=== PATIENT | female | born 1995 | race Hispanic/Latino ===

== ENCOUNTER 2020-02-21 12:30 | Inpatient (IN) | payer BC ==
--- OUTSIDE RECORDS SUMMARY | 2020-02-21 12:36 | XMS REPORT ---
:1995 Author Organization [facility] t Address [address] [place] [address] [place] [id number] Care Team Providers Name Role Phone Unavailable Unavailable Unavailable Problems This patient has no known problems. Allergies, Adverse Reactions, Alerts This patient has no known allergies or adverse reactions. Medications This patient has no known medications.
[2020-02-21] MEDS ORDERED: MEPERIDINE HCL 25 MG/0.5 ML IV PRN (13:17)
[2020-02-21] MEDS ORDERED: Ringers Lactate 1,000 ML IV PRN (13:17)
[2020-02-21] MEDS ORDERED: METHYLERGONOVINE 0.2MG/ML AMP IM PRN (13:17)
[2020-02-21] MEDS ORDERED: CARBOPROST TROME 250 MCG/ML IM PRN (13:17)
[2020-02-21 13:43] LABS: Absolute Lymphocytes (CBC) 1.2 K/uL (0.7-4.9); Basophils % 0.2 % (0-1.3); Hematocrit 35.3 % (36.0-45.0); Lymphocytes % 7.2 % (15.3-44.8); MPV 8.5 fL (7.6-11.3); RBC Red Blood Cell Count 4.19 M/uL (3.86-4.86)
[2020-02-21] MEDS ORDERED: LIDOCAINE 1% 20 ML MDV ONE (13:47)
[2020-02-21 13:54] LABS: Urine Appearance CLOUDY; Urine Blood 2+ (NEG); Urine Color DK YELLOW; Urine Glucose NEGATIVE (NEG); Urine Protein TRACE (NEG); Urine pH 7.5 (5.0-7.0)
[2020-02-21] MEDS ORDERED: BUTORPHANOL 1 MG/ML INJ ONE (13:56)
[2020-02-21] MEDS ORDERED: OXYTOCIN/LR 20 UNIT/1,000 ML BAG IV SCH ×2 (14:00→16:00)
[2020-02-21] MEDS ORDERED: Ringers Lactate 1,000 ML IV SCH (14:00)
[2020-02-21 14:10] LABS: Blood Morphology Comment NOT SEEN (NOT SEEN); Platelet Estimate ADEQ; Urine White Blood Cell Casts OK
[2020-02-21 14:16] VITALS: BMI 23.4
[2020-02-21 14:29] LABS: Urine Microscopic Reflex ORDER UMIC
[2020-02-21 14:30] LABS: Urine Bilirubin NEGATIVE (NEG)
[2020-02-21 14:33] LABS: Urine Bacteria 20-50 /HPF (<20); Urine Culture Reflex Order REFLEXED; Urine Mucus SLIGHT /HPF (NONE SEEN); Urine RBC 20-50 /HPF (NONE SEEN)
[2020-02-21] MEDS ORDERED: Oxycodone HCl/Acetaminophen 1 TAB TAB PO PRN (15:05)
[2020-02-21] MEDS ORDERED: ACETAMINOPHEN 500 MG TAB PO PRN (15:05)
[2020-02-21] MEDS ORDERED: BISACODYL 10 MG RECTAL SUPP PR PRN (15:05)
[2020-02-21] MEDS ORDERED: DIPHENHYDRAMINE 25 MG TAB/CAP PO PRN (15:05)
[2020-02-21] MEDS ORDERED: DOCUSATE NA/SENNA CONC 1 TAB PO PRN (15:05)
[2020-02-21] MEDS: IBUPROFEN 600 MG TAB PO PRN ×2 (17:38→23:46)
--- NOTE | 2020-02-21 18:36 | PREOPHP ---
Date of Admission: 02/21/2020 A 24-year-old 2, para 1, scheduled for induction tomorrow. Thirty-eight weeks 6 days, came i n today in active labor, 4 cm, just 30 minutes ago. Now, she is 5.5 to 6, 90% to 100% effaced, verte x, -1 station. Rupture of membranes, clear fluid. Ludwig regularly. FHTs normal, Rh positive, immune to Rubella. Negative beta strep screen. Patient will use Lamaze breathing techniques, possi michelle IV medications, anticipate relatively rapid labor if she continues current rate of dilation. Lab or talk given. [place]/RANDEE Voice ID: [id number]
[2020-02-21] MEDS: Oxycodone HCl/Acetaminophen 1 TAB TAB PO PRN ×2 (21:00→23:45)
[2020-02-21 23:42] LABS: RPR (Rapid Plasma Reagin) NON-REACT (NON-REACT)
--- NOTE | 2020-02-21 23:56 | OP ---
Surgeon: Abhishek Ernandez MD Description Of Procedure: A 24-year-old 2, para 1, 38 weeks 6 days, scheduled for induction tomorrow, comes in, in active labor. 4 cm on admission, 90% effaced, vertex, -1 station. After IV s tarted, rupture of membranes, clear fluid. Rh positive, immune to Rubella. Negative beta strep scre en. Received Stadol 1 mg IV during the labor, otherwise used Lamaze breathing techniques. Went to [facility] very rapidly. Second stage essentially of 1 push. Spontaneous vaginal delivery of an estima sandy 7.5 pounds female, Apgars 9 and 9. No episiotomy. No laceration. Garber delivery of the placen ta, very large, but otherwise noted to be normal and intact. Estimated blood loss 250 cc or less. P atient tolerated all procedures well. Final Diagnoses: Term intrauterine at 38 weeks 6 days, spontaneous labor, vaginal delivery . [place]/RANDEE Voice ID: [id number] Report ID: [id number]
[2020-02-22] MEDS: Oxycodone HCl/Acetaminophen 1 TAB TAB PO PRN (04:33)
--- NOTE | 2020-02-22 09:58 | DS ---
Hospital Course: A 24-year-old 2, para 1, scheduled for induction today, came in yesterday i n active labor, 4 cm on admission, 90% to 100% effaced, rupture of membranes, clear fluid. The patie nt had 1 mg of Stadol during the labor, otherwise used Lamaze breathing techniques to best advantage. After achieving 6 cm went rapidly to complete. Delivered spontaneously a 7-pound 4-ounce female. Apgars 9 and 9. No episiotomy. No laceration. Garber delivery of the placenta, which was very larg e, but otherwise normal. Estimated blood loss 250 cc or less. Rh positive, immune to Rubella. Nega tive beta strep screen. ; afebrile, ambulating, and voiding. Lochia is normal. Tdap admi nistration has been discussed during her and again offered today. She requests no analgesi cs on dismissal. Will come back to the office in 6 weeks for followup. To report any temperature el evation of 100 degrees or greater, severe pain, heavy bleeding, or any other type of abnormalities. Final Diagnoses: Term intrauterine 38 weeks 6 days, spontaneous labor, vaginal delivery, T dap offered. [place]/RANDEE Voice ID: [id number] Report ID: [id number]
[2020-02-22] MEDS: IBUPROFEN 600 MG TAB PO PRN (12:48)
[2020-02-22 14:58] VITALS: BP 111/65; TEMP 98
[2020-02-22] MEDS ORDERED: Tdap (Diph,Pertuss(Acell),Tet Vac) 0.5 ML SYR IMVAC ONE (17:16)
== END 2020-02-22 17:25 | disposition home or self-care (01) | DRG 807 ==
LOC: L&D 12:30 → 2ND-WC 13:13
PROVIDERS: ADMIT Specialist; ATTEND Specialist
PROC: 10E0XZZ Delivery of Products of Conception, External Approach (ICD-10-PCS; principal; 2020-02-21)
PROC: 10907ZC Drainage of Amniotic Fluid, Therapeutic from Products of Conception, Via Natural or Artificial Opening (ICD-10-PCS; 2020-02-21)
DX: O80 Encounter for full-term uncomplicated delivery (principal); Z37.0 Single live birth; Z3A.38 38 weeks gestation of pregnancy; Z23 Encounter for immunization
CPT/HCPCS: 36415; 81003; 81015; 85025; 86592; 87086; 87088; 87340; 90471; 90715; J0595; J2210; J2590; J7120